=== PATIENT | female | born 1950 | race Caucasian/White ===

== ENCOUNTER 2016-04-30 07:46 | Day surgery (SDC) | payer OTHER ==
[~2016-04-30] VITALS: Ht 152.4 cm; Wt 97.0 kg
[~2016-04-30 07:46] MED LIST: ALEVE220 M2 PO; ASPIRIN EC325 MG PO; COUMADIN2.5 MG PO; CYMBALTA30 MG PO; DESYREL100 MG PO; DILAUDID2 MG PO; FAMOTIDINE40 MG PO; HYDROCODON-ACE1 EAC7 PO; HYDROXYZINE PAM25 MG PO; IRON325 M1 PO; LIPO-FLAVONO1 TABLET PO; LISINOPRIL40 MG PO; LIVALO4 MG PO; LOVASTATIN40 MG PO; NABUMETONE500 MG PO; NORVASC2.5 MG PO; OMEGA-31000 M1 PO; OMEPRAZOLE40 M1 PO; SENNA-TIME S T1 EACH PO; TRAZODONE HCL100 MG PO; TYLENOL EXTRA500 MG PO; VISTARIL25 MG PO; VITAMIN D31000 UNI2 PO; WARFARIN SODIU2.5 MG PO; ZESTRIL10 MG PO; ZOCOR20 MG PO; [UNRECOGNIZED DRUG - OTHER] PO
[2016-04-30 08:09] VITALS: BP 134/70
[2016-04-30 13:39] LABS: MCV 86.4 FL (83-99)
[2016-04-30 15:13] VITALS: BP 99/58
[2016-04-30 19:40] VITALS: BP 97/53
[2016-04-30 23:33] VITALS: BP 115/55
[2016-05-01 03:40] VITALS: BP 105/57
[2016-05-01 07:02] VITALS: BP 114/67
[2016-05-01 07:21] LABS: ANION GAP 8 MEQ/L (2-14); CHLORIDE 100 MEQ/L (99-109); GFR ESTIMATE (CALCULATED) > 59 mL/min/; GLUCOSE 109 mg/dL (70-99); POTASSIUM 4.5 MEQ/L (3.7-5.4); SAMPLE HEMOLYSIS CHECK 0; SAMPLE ICTERIC CHECK 0; SAMPLE LIPEMIA CHECK 0; SODIUM 136 MEQ/L (136-147); UREA NITROGEN (BUN) 17 mg/dL (9-23)
[2016-05-01 11:26] VITALS: BP 117/62
[2016-05-01 16:11] VITALS: BP 136/68
[2016-05-01 19:37] VITALS: BP 115/67
[2016-05-01 23:44] VITALS: BP 131/67
[2016-05-02 03:54] VITALS: BP 132/60
[2016-05-02 07:40] VITALS: BP 130/78
[2016-05-02] MEDS ORDERED: ACETAMINOPHN-T1 EACH PO (10:13)
[2016-05-02] MEDS ORDERED: IBUPROFEN800 MG PO (10:13)
[2016-05-02] MEDS ORDERED: PREMARIN VAGI42.5 GM VG (10:13)
[2016-05-02] MEDS ORDERED: DOCUSATE SODIU100 MG PO (10:13)
== END 2016-05-02 10:56 | disposition home or self-care (01) ==
LOC: SDC 07:46 → 2SOUTH 12:34 → 2EASTP 15:01
PROVIDERS: Obstetrics & Gynecology
DX: N81.6 Rectocele (principal); N39.3 Stress incontinence (female) (male); R33.8 Other retention of urine; Z22.322 Carrier or suspected carrier of Methicillin resistant Staphylococcus aureus; E78.5 Hyperlipidemia, unspecified; K21.9 Gastro-esophageal reflux disease without esophagitis; I10 Essential (primary) hypertension; E66.9 Obesity, unspecified; G47.33 Obstructive sleep apnea (adult) (pediatric); Z79.82 Long term (current) use of aspirin
CPT/HCPCS: 80048; 85014; 85018; 93005; C1771; G0378; J0131; J0690; J1100; J1170; J1885; J2250; J2270; J2405; J2765; J3010; J7120

== ENCOUNTER → 2016-09-09 | Outpatient (CLI) | payer OTHER ==
[~2016-09-09] MED LIST changes: +ACETAMINOPHN-T1 EACH PO; +DOCUSATE SODIU100 MG PO; +IBUPROFEN800 MG PO; +PREMARIN VAGI42.5 GM VG
== END | disposition home or self-care (01) ==
LOC: RAD 10:41
DX: M19.012 Primary osteoarthritis, left shoulder (principal)
CPT/HCPCS: 73030

== ENCOUNTER → 2016-10-07 | Outpatient (CLI) | payer OTHER ==
[~2016-10-07] MED LIST changes: +FLEXERIL5 MG PO
== END | disposition home or self-care (01) ==
LOC: NUC 08:14 → EKG 12:00
DX: R03.0 Elevated blood-pressure reading, without diagnosis of hypertension (principal); R73.03 Prediabetes; Z82.49 Family history of ischemic heart disease and other diseases of the circulatory system
CPT/HCPCS: 78452; 93017; 93306; A9500; J2785

== ENCOUNTER 2016-10-12 18:35 | Emergency (ER) | payer OTHER ==
[~2016-10-12] VITALS: Ht 152.4 cm; Wt 95.3 kg
[~2016-10-12 18:35] MED LIST changes: -FLEXERIL5 MG PO
[2016-10-12 18:38] VITALS: BP 137/90
[2016-10-12] MEDS ORDERED: FLEXERIL5 MG PO (19:19)
== END 2016-10-12 19:40 | disposition home or self-care (01) ==
LOC: EME 18:35
DX: S29.012A Strain of muscle and tendon of back wall of thorax, initial encounter (principal); V49.40XA Driver injured in collision with unspecified motor vehicles in traffic accident, initial encounter; Z88.2 Allergy status to sulfonamides; Z88.6 Allergy status to analgesic agent
CPT/HCPCS: 99281; 99284

== ENCOUNTER → 2016-10-27 | Outpatient (CLI) | payer OTHER ==
[~2016-10-27] MED LIST changes: +FLEXERIL5 MG PO
== END | disposition home or self-care (01) ==
LOC: RAD 08:46
DX: R93.6 Abnormal findings on diagnostic imaging of limbs (principal)
CPT/HCPCS: 93971

== ENCOUNTER → 2016-11-24 | Outpatient (CLI) | payer OTHER | END | disposition home or self-care (01) | LOC: NUC 07:05 | DX: I27.2 Other secondary pulmonary hypertension (principal) | CPT/HCPCS: 71020; 78582; A9540; A9567 ==

== ENCOUNTER → 2017-04-29 | Outpatient (CLI) | payer OTHER | END | disposition home or self-care (01) | LOC: RAD 08:41 | DX: N20.0 Calculus of kidney (principal); N28.89 Other specified disorders of kidney and ureter; R82.91 Other chromoabnormalities of urine; R94.4 Abnormal results of kidney function studies | CPT/HCPCS: 76770 ==

== ENCOUNTER → 2017-05-06 | Outpatient (CLI) | payer OTHER | END | disposition home or self-care (01) | LOC: RAD 08:39 | DX: C64.2 Malignant neoplasm of left kidney, except renal pelvis (principal) | CPT/HCPCS: 74150 ==

== ENCOUNTER → 2017-05-25 | Outpatient (CLI) | payer OTHER | END | disposition home or self-care (01) | LOC: RAD 13:36 | DX: D30.02 Benign neoplasm of left kidney (principal) | CPT/HCPCS: 71046 ==

== ENCOUNTER → 2017-07-08 | Outpatient (CLI) | payer OTHER | END | disposition home or self-care (01) | LOC: RAD 08:37 | DX: N28.89 Other specified disorders of kidney and ureter (principal); K57.30 Diverticulosis of large intestine without perforation or abscess without bleeding | CPT/HCPCS: 74177 ==

== ENCOUNTER 2017-07-31 21:46 | Inpatient (IN) | payer OTHER ==
[~2017-07-31] VITALS: Ht 149.9 cm; Wt 98.8 kg
[~2017-07-31 21:46] MED LIST changes: +BENTYL20 MG PO; +CATAPRES0.2 MG PO; +COZAAR100 MG PO; +LOW DOSE ASPIRI81 M1 PO; +MICROZIDE12.5 M1 PO; +NASONEX17 GM BOTH NARES; +PROAIR RESPICL90 MCG IH; +ZYRTEC10 M2 PO
[2017-08-01 06:12] VITALS: BP 133/78
[2017-08-01] MEDS ORDERED: DOCUSATE SODIU100 MG PO (10:25)
[2017-08-01] MEDS ORDERED: PERCOCET 5/31 TABLET PO (10:25)
[2017-08-01 15:25] LABS: HEMATOCRIT 33.7 % (36.0-46.0); MCH 28.3 PG (29.0-34.0); MCHC 32.6 G/DL (30.0-36.0); MCV 86.6 FL (83-99); PLATELET COUNT 179 K/uL (156-360); RBC DIS.WIDTH-CV 12.9 % (11.8-14.6); RBC DIS.WIDTH-SD 40.6 % (39-53); RED BLOOD COUNT 3.89 M/uL (3.80-5.20); WHITE BLOOD COUNT 8.5 K/uL (4.1-10.2)
[2017-08-01 15:45] LABS: CHLORIDE 99 MEQ/L (99-109); CREATININE 1.2 MG/DL (0.6-1.3); GFR ESTIMATE (CALCULATED) 48 mL/min/; GLUCOSE 138 mg/dL (70-99); POTASSIUM 4.1 MEQ/L (3.7-5.4); SODIUM 135 MEQ/L (136-147); UREA NITROGEN (BUN) 17 mg/dL (9-23)
[2017-08-01 16:05] VITALS: BP 137/88
[2017-08-01 17:20] VITALS: BP 137/88
[2017-08-01 18:10] VITALS: BP 110/63
[2017-08-01 21:50] VITALS: BP 118/68
[2017-08-01 23:29] VITALS: BP 103/62
[2017-08-02 04:28] VITALS: BP 105/62
[2017-08-02 06:35] LABS: HEMATOCRIT 29.6 % (36.0-46.0); HEMOGLOBIN 9.8 G/DL (11.9-15.5); MCH 28.3 PG (29.0-34.0); MCHC 33.1 G/DL (30.0-36.0); MCV 85.5 FL (83-99); PLATELET COUNT 177 K/uL (156-360); RBC DIS.WIDTH-CV 12.8 % (11.8-14.6); RBC DIS.WIDTH-SD 39.7 % (39-53); RED BLOOD COUNT 3.46 M/uL (3.80-5.20); WHITE BLOOD COUNT 8.3 K/uL (4.1-10.2)
[2017-08-02 06:56] LABS: CHLORIDE 100 MEQ/L (99-109); CREATININE 1.5 MG/DL (0.6-1.3); GFR ESTIMATE (CALCULATED) 37 mL/min/; GLUCOSE 119 mg/dL (70-99); POTASSIUM 4.4 MEQ/L (3.7-5.4); SODIUM 136 MEQ/L (136-147); UREA NITROGEN (BUN) 17 mg/dL (9-23)
[2017-08-02 07:15] VITALS: BP 104/55
[2017-08-02 15:30] VITALS: BP 136/63
[2017-08-02 19:12] VITALS: BP 143/86
[2017-08-02 22:50] VITALS: BP 122/62
[2017-08-03 03:00] VITALS: BP 117/62
[2017-08-03 06:31] LABS: HEMATOCRIT 29.2 % (36.0-46.0); HEMOGLOBIN 9.4 G/DL (11.9-15.5); MCHC 32.2 G/DL (30.0-36.0); MCV 86.9 FL (83-99); PLATELET COUNT 165 K/uL (156-360); RBC DIS.WIDTH-CV 13.1 % (11.8-14.6); RBC DIS.WIDTH-SD 41.1 % (39-53); RED BLOOD COUNT 3.36 M/uL (3.80-5.20); WHITE BLOOD COUNT 7.3 K/uL (4.1-10.2)
[2017-08-03 06:51] LABS: CHLORIDE 101 MEQ/L (99-109); CREATININE 1.5 MG/DL (0.6-1.3); GFR ESTIMATE (CALCULATED) 37 mL/min/; GLUCOSE 106 mg/dL (70-99); POTASSIUM 3.9 MEQ/L (3.7-5.4); SODIUM 137 MEQ/L (136-147); UREA NITROGEN (BUN) 15 mg/dL (9-23)
[2017-08-03 06:56] VITALS: BP 117/76
[2017-08-03 07:41] VITALS: BP 112/73
[2017-08-03 16:48] VITALS: BP 139/59
[2017-08-04] VITALS: BP 144/89
[2017-08-04 06:47] LABS: HEMATOCRIT 30.6 % (36.0-46.0); HEMOGLOBIN 9.7 G/DL (11.9-15.5); MCH 27.6 PG (29.0-34.0); MCHC 31.7 G/DL (30.0-36.0); MCV 87.2 FL (83-99); PLATELET COUNT 171 K/uL (156-360); RBC DIS.WIDTH-CV 12.8 % (11.8-14.6); RBC DIS.WIDTH-SD 40.9 % (39-53); RED BLOOD COUNT 3.51 M/uL (3.80-5.20); WHITE BLOOD COUNT 7.5 K/uL (4.1-10.2)
[2017-08-04 07:19] LABS: CHLORIDE 99 MEQ/L (99-109); CREATININE 1.5 MG/DL (0.6-1.3); GFR ESTIMATE (CALCULATED) 37 mL/min/; GLUCOSE 126 mg/dL (70-99); POTASSIUM 4.2 MEQ/L (3.7-5.4); SODIUM 138 MEQ/L (136-147); UREA NITROGEN (BUN) 13 mg/dL (9-23)
[2017-08-04 08:22] VITALS: BP 139/83
[2017-08-04 15:53] VITALS: BP 119/73
[2017-08-04 20:01] VITALS: BP 142/73
[2017-08-04 23:18] VITALS: BP 117/77
[2017-08-05 04:13] VITALS: BP 140/77
[2017-08-05 06:40] LABS: HEMATOCRIT 28.3 % (36.0-46.0); HEMOGLOBIN 9.2 G/DL (11.9-15.5); MCH 28.3 PG (29.0-34.0); MCHC 32.5 G/DL (30.0-36.0); MCV 87.1 FL (83-99); PLATELET COUNT 162 K/uL (156-360); RBC DIS.WIDTH-CV 12.9 % (11.8-14.6); RED BLOOD COUNT 3.25 M/uL (3.80-5.20); WHITE BLOOD COUNT 5.3 K/uL (4.1-10.2)
[2017-08-05 07:16] LABS: CHLORIDE 100 MEQ/L (99-109); CREATININE 1.5 MG/DL (0.6-1.3); GFR ESTIMATE (CALCULATED) 37 mL/min/; GLUCOSE 119 mg/dL (70-99); POTASSIUM 3.7 MEQ/L (3.7-5.4); SODIUM 139 MEQ/L (136-147); UREA NITROGEN (BUN) 10 mg/dL (9-23)
[2017-08-05 08:06] VITALS: BP 110/61
[2017-08-05 11:00] VITALS: BP 139/87
== END 2017-08-05 16:30 | disposition home or self-care (01) | DRG 657 ==
LOC: ENRESERV 21:46 → 2SOUTH 08-01 05:16 → EDSTATUS 08-01 09:40 → 2SOUTH 08-01 09:44 → SDC 08-01 10:18 → ENRESERV 08-01 12:54 → 5EAST 08-01 14:53 → ENPENDDIS 08-05 → 5EAST 08-05 16:30
PROVIDERS: Urology
PROC: 0TT10ZZ Resection of Left Kidney, Open Approach (ICD-10-PCS; principal; 2017-08-01)
DX: C64.2 Malignant neoplasm of left kidney, except renal pelvis (principal); I12.9 Hypertensive chronic kidney disease with stage 1 through stage 4 chronic kidney disease, or unspecified chronic kidney disease; N18.3 Chronic kidney disease, stage 3 (moderate); E66.9 Obesity, unspecified; Z68.41 Body mass index [BMI] 40.0-44.9, adult; I27.20 Pulmonary hypertension, unspecified; I35.0 Nonrheumatic aortic (valve) stenosis; M15.9 Polyosteoarthritis, unspecified; M47.9 Spondylosis, unspecified; R73.03 Prediabetes; E89.2 Postprocedural hypoparathyroidism; Z79.82 Long term (current) use of aspirin; Z87.442 Personal history of urinary calculi; Z87.440 Personal history of urinary (tract) infections; Z90.710 Acquired absence of both cervix and uterus
CPT/HCPCS: 80048; 85027; 87641; 88307; 88341 TC; 88342 TC; 94660; 94799; 99202; J0131; J0690; J1100; J1170; J1644; J2405; J2550; J2710; J2765; J3010; J7120; J7643; Q0175